=== PATIENT | female | born 2000 | race Caucasian/White ===

== ENCOUNTER → 2024-02-18 09:02 | Outpatient (BNVA) | payer MEDICAID, SELFPAY | PROVIDERS: Visit Provider Nurse Practitioner Family | DX: N92.6 Irregular menstruation, unspecified (principal) | CPT/HCPCS: 81025 ==

== ENCOUNTER 2024-09-27 23:08 | Outpatient (CLI) | payer MEDICAID, SELFPAY ==
[2024-09-27 23:33] VITALS: BMI 36.0
[2024-09-27 23:38] VITALS: BP 115/70; PULSE 87
[2024-09-27 23:53] VITALS: BP 110/70; PULSE 100
[2024-09-27 23:55] LABS: Add Urine Microscopic? YES; Bacteria Urine Trace /hpf; Bilirubin Urine Neg (Negative); Blood Urine Neg (Negative); Glucose Urine UA Norm (Normal); Ketones Urine Negative (Negative); Leukocyte Esterase Urine 2+ (Negative); Nitrate Urine Negative (Negative); Protein Urine Neg (Negative); RBC Urine 0-2 /hpf (0-2); Urine Appearance Slightly Cloudy (CLEAR); Urine Color Yellow (Yellow); Urobilinogen Urine Norm (Negative); pH Urine 7 (5-7)
[2024-09-28 00:05] LABS: Amphetamines Screen Urine Negative (Negative); Barbiturates Screen Urine Negative (Negative); Benzodiazepines Screen Urine Negative (Negative); Cocaine Screen Urine Negative (Negative); Opiate Screen Urine Negative (Negative); PCP Screen Urine Negative (Negative); THC Screen Urine Positive (Negative)
[2024-09-28 00:24] VITALS: BP 111/69; PULSE 100
[2024-09-28 00:38] VITALS: BP 119/73; PULSE 92
[2024-09-28] MEDS: ceFAZolin 2,000 mg SDV 2000 MG IVP (00:39)
[2024-09-28 01:04] VITALS: BP 119/73; PULSE 92; RESP 16; O2SAT 100
== END 2024-09-28 01:04 | disposition home or self-care (01) ==
LOC: OPOB 23:13 → OBGYN 23:14
PROVIDERS: Visit Provider Obstetrics & Gynecology
DX: O26.899 Other specified pregnancy related conditions, unspecified trimester (principal); Z3A.00 Weeks of gestation of pregnancy not specified; R10.9 Unspecified abdominal pain
CPT/HCPCS: 59025; 80306; 81001; 96374; 99211; J0690

== ENCOUNTER 2024-10-26 09:18 | Outpatient (CLI) | payer MEDICAID, SELFPAY ==
[2024-10-26 09:18] VITALS: RESP 16; BMI 36.0
== END 2024-10-26 10:20 | disposition home or self-care (01) ==
LOC: OPOB 09:19 → OBGYN 09:20
PROVIDERS: Visit Provider Obstetrics & Gynecology
DX: O26.899 Other specified pregnancy related conditions, unspecified trimester (principal); Z3A.00 Weeks of gestation of pregnancy not specified; R10.9 Unspecified abdominal pain
CPT/HCPCS: 59025; 99211

== ENCOUNTER 2024-11-01 13:00 | Outpatient (CLI) | payer MEDICAID, SELFPAY ==
[2024-11-01 13:05] VITALS: BMI 37.0
[2024-11-01 13:11] VITALS: BP 116/68; PULSE 79
[2024-11-01 13:26] VITALS: BP 123/77; PULSE 94
[2024-11-01 13:45] VITALS: BP 123/77; PULSE 94; RESP 18
== END 2024-11-01 13:45 | disposition home or self-care (01) ==
LOC: OPOB 13:03 → OBGYN 13:05
PROVIDERS: Visit Provider Obstetrics & Gynecology
DX: O26.899 Other specified pregnancy related conditions, unspecified trimester (principal); Z3A.00 Weeks of gestation of pregnancy not specified; R10.9 Unspecified abdominal pain
CPT/HCPCS: 59025; 99211

== ENCOUNTER 2024-11-12 18:45 | Outpatient (CLI) | payer MEDICAID, SELFPAY ==
[2024-11-12 18:45] VITALS: BMI 36.3
[2024-11-12 19:06] VITALS: BP 126/83; PULSE 92
[2024-11-12 19:22] VITALS: BP 111/74; PULSE 92
[2024-11-12 19:37] VITALS: BP 113/79; PULSE 101
[2024-11-12 19:52] VITALS: BP 116/74; PULSE 90
== END 2024-11-12 20:00 | disposition left against medical advice (07) ==
LOC: OPOB 18:45 → OBGYN 18:46
PROVIDERS: Visit Provider Obstetrics & Gynecology
DX: O26.899 Other specified pregnancy related conditions, unspecified trimester (principal); Z3A.00 Weeks of gestation of pregnancy not specified; R10.9 Unspecified abdominal pain
CPT/HCPCS: 59025; 99211

== ENCOUNTER 2024-12-20 01:41 | Emergency (ER) | payer MEDICAID, SELFPAY ==
[2024-12-20 01:48] VITALS: BP 107/58; PULSE 74; RESP 18; TEMP 36.6; O2SAT 100; BMI 34.3
--- OUTSIDE RECORDS SUMMARY | 2024-12-20 01:58 | XMS_ITS | Data Portability ---
Author Organization [facility] Address [address] [place] [address] Assessment No assessment recorded. Plan of Treatment Reminders Order Date Submit Date Provider Last Modified By Organization Details Last Modified Time Details Appointments None recorded. Lab urinalysis, dipstick 2023 024 [place] Main Office, [address], [place], [address], 4 08:52:14 urinalysis complete, reflex culture 2023 024 [place] [facility], [address], [address], 4 11:18:46 Referral obstetricia n and gynecologis t referral 2023 024 Eugene Vegas MD, [address] [facility], [address], [place], [address], 4 15:21:01 neurologist referral 2023 024 [email or web address] Perez Finn MD, [address], [address], 5 15:40:11 Procedures None recorded. Surgeries None recorded. Imaging None recorded. Medication Orders mupirocin 2 % topical ointment 2023 025 [place] [facility][id number], [address] [place], [place], [id number], 5 12:08:04 28 mg iron-800 mcg tablet 2023 025 [facility], [address], [place], [id number], 5 12:15:45 fluticasone propionate 50 mcg/actuati on nasal spray,suspe nsion 2023 024 [facility], [address], [place], [id number], 4 08:23:41 albuterol sulfate HFA 90 mcg/actuati on aerosol inhaler 2023 024 [address] [facility], [facility] [place], [place], [id number], 4 08:23:41 famotidine 20 mg tablet 2023 024 [address] [facility], [address], [place], [id number], 4 08:23:41 Patient TargetsNo targets recorded. Patient InstructionsNo instructions recorded. Reason for Referral [employer] Gynecologis t Referral for 14+ weeks gestation Referring Physician: Olivia Martinez [facility], Encounter Date: 05/28/2024 Neurologist Referral for Sei zure disorder Evaluation and management Referring Physician: Olivia Martinez [facility], Encounter Date: 05/28/2024 Results Created Date Observation Date Name Description Value Unit Range Abnormal Flag Note LastModifiedBy Organization Detail LastModifiedTime 06/01/20 24 06/01/2024 INDIC ATED URINE CULTU RE culture, urine SPECIM EN NUMBER : [id number] CULTU RE, URINE SPECI MEN NUMBE R: [id number] SPECI MEN COMME NT: URINE SOURC E: URINE REPOR T STATU S: FINAL FINAL REPOR T: 06/01 >100, 000 CFU/M L UROGE NITAL ENRIKE PRESE NT NO COMMO N PATHO GENS Testi ng Perfo rmed At: [facility] [address] [facility] [place] [address] Labor atory Dire tor: Robert cazares, MKiana NAYAN Huerta r [id number] [place]. [id number] Not Available [facility] - Main Lab (Blood Not Drawn At This Location) Visit [place], [address], 06/01/2024 11:18:45 06/01/20 24 05/30/2024 UA, MICRO SCOPI C, REFLE X TO CULTU RE color DARK YELLOW yellow -straw abnormal Not Available [facility] Main Lab (Blood Not Drawn At This Location) [place], [address], 06/01/2024 11:18:45 06/01/20 24 05/30/2024 UA, MICRO SCOPI C, REFLE X TO CULTU RE appearance TURBID clear abnormal Not Available [facility] Main Lab (Blood Not Drawn At This Location) [place], [address], 06/01/2024 11:18:45 06/01/20 24 05/30/2024 UA, MICRO SCOPI C, REFLE X TO CULTU RE specific gravity 1.034 1.005- 1.035 Not Available [facility] Main Lab (Blood Not Drawn At This Location) [place], [address], 06/01/2024 11:18:45 06/01/20 24 05/30/2024 UA, MICRO SCOPI C, REFLE X TO CULTU RE leukocyte esterase TRACE negati ve abnormal Not Available [facility] Main Lab (Blood Not Drawn At This Location) [place], [address], 06/01/2024 11:18:45 06/01/20 24 05/30/2024 UA, MICRO SCOPI C, REFLE X TO CULTU RE nitrite NEGATI VE negati ve Not Available [facility] Main Lab (Blood Not Drawn At This Location) [place], [address], 06/01/2024 11:18:45 06/01/20 24 05/30/2024 UA, MICRO SCOPI C, REFLE X TO CULTU RE pH 5.0 5.0-9. 0 Not Available [facility] Main Lab (Blood Not Drawn At This Location) [place], [address], 06/01/2024 11:18:45 06/01/20 24 05/30/2024 UA, MICRO SCOPI C, REFLE X TO CULTU RE protein TRACE negati ve abnormal Not Available [facility] Main Lab (Blood Not Drawn At This Location) [place], [address], 06/01/2024 11:18:45 06/01/20 24 05/30/2024 UA, MICRO SCOPI C, REFLE X TO CULTU RE glucose NEGATI VE negati ve Not Available [facility] Main Lab (Blood Not Drawn At This Location) [place], [address], 06/01/2024 11:18:45 06/01/20 24 05/30/2024 UA, MICRO SCOPI C, REFLE X TO CULTU RE ketones TRACE negati ve abnormal Not Available [facility] Main Lab (Blood Not Drawn At This Location) [place], [address], 06/01/2024 11:18:45 06/01/20 24 05/30/2024 UA, MICRO SCOPI C, REFLE X TO CULTU RE urobilinogen 0.2 mg/dL <=2.0 Not Available [facility] (Blood Not Drawn At This Location) [place], [address], 06/01/2024 11:18:45 06/01/20 24 05/30/2024 UA, MICRO SCOPI C, REFLE X TO CULTU RE bilirubin NEGATI VE negati ve Not Available [facility] Main Lab (Blood Not Drawn At This Location) [place], [address], 06/01/2024 11:18:45 06/01/20 24 05/30/2024 UA, MICRO SCOPI C, REFLE X TO CULTU RE occult blood NEGATI VE negati ve Not Available [facility] Main Lab (Blood Not Drawn At This Location) [place], [address], 06/01/2024 11:18:45 06/01/20 24 05/30/2024 UA, MICRO SCOPI C, REFLE X TO CULTU RE white blood cells 11-15 /hpf 0-5 abnormal Not Available [facility] Main Lab (Blood Not Drawn At This Location) [place], [address], 06/01/2024 11:18:45 06/01/20 24 05/30/2024 UA, MICRO SCOPI C, REFLE X TO CULTU RE red blood cells 0-2 /hpf 0-2 Not Available [facility] Main Lab (Blood Not Drawn At This Location) [place], [address], 06/01/2024 11:18:45 06/01/20 24 05/30/2024 UA, MICRO SCOPI C, REFLE X TO CULTU RE epithelial cells 21-30 /hpf 0-10 abnormal Not Available [facility] Main Lab (Blood Not Drawn At This Location) [place], [address], 06/01/2024 11:18:45 06/01/20 24 05/30/2024 UA, MICRO SCOPI C, REFLE X TO CULTU RE bacteria 3+ none seen abnormal Not Available [facility] Main Lab (Blood Not Drawn At This Location) [place], [address], 06/01/2024 11:18:45 06/01/20 24 05/30/2024 UA, MICRO SCOPI C, REFLE X TO CULTU RE crystals PRESEN T none seen abnormal CALCI UM OXALA TE CRYST ALS Not Available [facility] Main Lab (Blood Not Drawn At This Location) [place], [address], 06/01/2024 11:18:45 06/01/20 24 05/30/2024 UA, MICRO SCOPI C, REFLE X TO CULTU RE casts, hyaline TRACE none-t race Testi ng Perfo rmed At: [facility] [address] [place] [address] Labor atory Dire tor: Robert cazares M.D. CLIA Numbe r [id number] [place]. [id number] Not Available [facility] Main Lab (Blood Not Drawn At This Location) [place], [address], 06/01/2024 11:18:45 05/29/20 24 05/29/2024 urina lysis , dipst ick Leukocytes Trace Not Available Main Of fice [address], [place], [address], 05/29/2024 08:23:55 05/29/20 24 05/29/2024 urina lysis , dipst ick Nitrite negati ve Not Available Main Office [address], [place], [address], 05/29/2024 08:23:55 05/29/20 24 05/29/2024 urina lysis , dipst ick Urobilinogen 0.2 Not Available Main Office [address], [place], [address], 05/29/2024 08:23:55 05/29/20 24 05/29/2024 urina lysis , dipst ick Protein Trace Not Available Main Offic e [address], [place], [address], 05/29/2024 08:23:55 05/29/20 24 05/29/2024 urina lysis , dipst ick pH 5.0 Not Available Main Offic e [address], [place], [address], 05/29/2024 08:23:55 05/29/20 24 05/29/2024 urina lysis , dipst ick Blood Neg Not Available Main Offic e [address], [place], [address], 05/29/2024 08:23:55 05/29/20 24 05/29/2024 urina lysis , dipst ick Specific [place] 1.030 Not Available Main O ffice [address], [place], [address], 05/29/2024 08:23:55 05/29/20 24 05/29/2024 urina lysis , dipst ick Ketone Neg Not Available Main Offic e [address], [place], [address], 05/29/2024 08:23:55 05/29/20 24 05/29/2024 urina lysis , dipst ick Bilirubin Neg Not Available Main Off ice [address], [place], [address], 05/29/2024 08:23:55 05/29/20 24 05/29/2024 urina lysis , dipst ick Glucose Neg Not Available Main Offic e [address], [place], [address], 05/29/2024 08:23:55 05/29/20 24 05/29/2024 urina lysis , dipst ick Appearance cloudy Not Available Main Of fice [address], [place], [address], 05/29/2024 08:23:55 05/29/20 24 05/29/2024 urina lysis , dipst ick Color orange Not Available Main Offic e [address], [place], [address], 05/29/2024 08:23:55 Result Notes None recorded. Problems Name Problem SNOMED Code Status Onset Date Resolution Date Notes Provider Name and Address Organization Details Recorded Time Gastroesophage al reflux disease without esophagitis 426753035 Active Olivia Martinez NP [address], [place], [address], [facility] 4 12:36:45 Asthma 718153316 Active Olivia Martinez NP [address], [place], [address], [facility] 4 12:36:54 Anxiety 23543667 Active Olivia Martinez NP [address], [place], [address], [facility] 4 12:37:53 Seasonal allergic rhinitis 965421694 Active Olivia Martinez NP [address], [place], [address], [facility] 4 12:39:22 Seizure disorder 633245762 Active Olivia Martinez NP [address], [place], [address], [facility] 4 13:54:38 Headache 02161444 Active Olivia Martinez NP [address], [place], [address], [facility] 4 14:05:05 Paronychia of toe 185335312 Active 2023 Olivia Martinez NP [address], [place], [address], [facility] 4 14:48:05 Gestation period, 18 weeks 40695425 Active 2023 Olivia Martinez NP [address], [place], [address], [facility] 4 14:49:24 Acute urinary tract infection 583315756 Active 2023 Olivia Martinez NP [address], [place], [address], [facility] 4 16:03:31 Gestation period, 27 weeks 30146144 Active 2024 Olivia Martinez NP [address], [place], [address], [facility] 5 12:44:15 Problem Notes None recorded. Procedures Surgical History Date Name Laterality Status Provider Name and Address Organization Details Recorded Time 08/04/2022 Date of Last Pap Smear completed NURSE Mercedes [address], [place], [address], [facility] 05/28/2024 12:45:58 Imaging Results None recorded. Procedure Notes None recorded. Medical Equipment None Reported. Allergies Allergen ID Allergen Name Allergen Category Reaction Reaction Severity Criticality Documentation Date Start Date Code Code System Note Provider Name and Address Organization Details Recorded Time 4808 ibuprofen medicatio n chest pain Not available Not available 05/28/2024 5640 RxNorm Olivia Martinez NP [address], [place], [address], [facility] 4 12:32:30 4809 Adderall medicatio n Not available Not available Not available 05/28/2024 41606 RxNorm Olivia Martinez NP [address], [place], [address], [facility] 4 12:32:30 4810 Vyvanse medicatio n Not available Not available Not available 05/28/2024 07976 3 RxNorm Olivia Martinez NP [address], [place], [address], [place] [facility] 4 12:32:30 Medications Name Sig Start Date Stop Date Status Note LastModified by Organization Details LastModified Time valacyclovi r 1 gram tablet 08/27 completed Not Available Not Available Not Available valacyclovi r 500 mg tablet active Not Available Not Available Not Available famotidine 20 mg tablet Take 1 tablet twice a day by oral route as needed for 30 days, for Acid Reflux. 08/26 completed Not Available Not Available Not Available cephalexin 500 mg capsule 08/27 completed Not Available Not Available Not Available mupirocin 2 % topical ointment APPLY SMALL AMOUNT TOPICALLY TO THE AFFECTED AREA THREE TIMES DAILY 08/27 completed Not Available Not Available Not Available cefuroxime axetil 500 mg tablet TAKE 1 TABLET BY MOUTH TWICE DAILY 08/27 completed Not Available Not Available Not Available albuterol sulfate HFA 90 mcg/actuati on aerosol inhaler Inhale 2 puffs every 4 hours by inhalatio n route as needed, for Shortness of Breath. active Not Available Not Available No t Available fluticasone propionate 50 mcg/actuati on nasal spray,suspe nsion SHAKE LIQUID AND USE 2 SPRAYS IN EACH NOSTRIL DAILY FOR ALLERGIES active Not Available Not Available No t Available nitrofurant oin monohydrate /macrocryst als 100 mg capsule TAKE 1 CAPSULE BY MOUTH EVERY 12 HOURS FOR 5 DAYS FOR UTI 06/16 completed Not Available Not Available Not Available 28 mg iron-800 mcg tablet Take 1 tablet every day by oral route for 30 days. 08/27 completed Not Available Not Available Not Available WesTab Plus 27 mg iron-1 mg tablet TAKE 1 TABLET BY MOUTH EVERY DAY active Not Available Not Available No t Available Vitals Date Recorded Body height Heart rate Respiratory rate Body temperature Body mass index (BMI) Body weight Oxygen saturation Oxygen saturation in Arterial blood by Pulse oximetry Systolic blood pressure Diastolic blood pressure Provider Name and Address Organization Details Last Updated DateTime 5 160.02 cm 100 /min 18 /min 98 [degF] 36.5 kg/m2 83260.7 5 g 98 % 98 % 120 mm[Hg] 70 mm[Hg] NURSE [address], [place], [address], [facility] 5 12:06:43 Date Recorded Body height Heart rate Respiratory rate Body temperature Body mass index (BMI) Body weight Oxygen saturation Oxygen saturation in Arterial blood by Pulse oximetry Systolic blood pressure Diastolic blood pressure Provider Name and Address Organization Details Last Updated DateTime 4 160.02 cm 88 /min 18 /min 98 [degF] 35.4 kg/m2 45523.0 4 g 99 % 99 % 117 mm[Hg] 70 mm[Hg] NURSE Bonifacio[address], [place], [address], [facility] 4 12:42:15 Date Recorded Body height Heart rate Respiratory rate Body temperature Body mass index (BMI) Body weight Oxygen saturation Oxygen saturation in Arterial blood by Pulse oximetry Systolic blood pressure Diastolic blood pressure Provider Name and Address Organization Details Last Updated DateTime 4 160.02 cm 80 /min 18 /min 98 [degF] 35 kg/m2 91458.5 7 g 98 % 98 % 120 mm[Hg] 70 mm[Hg] NURSE Mercedes [place], [place], [address], [facility] 4 14:20:40 Social History Question Answer Notes LastModified by Organizat ion Details LastModified Time Tobacco Smoking Status Former Smoker NURSE Bonifacio[address], [place], [address], [facility] 05/28/2024 12:44:39 In The 14 Days Before Symptom Onset, Have You Had Close Contact With A Laboratory-confi rmed COVID-19 While That Case Was Ill? No [email or web address] Information not available 05/28/2024 In The 14 Days Before Symptom Onset, Have You Had Close Contact With A Person Who Is Under Investigation For COVID-19 While That Person Was Ill? No [email or web address] Information not available 05/28/2024 Have You Been To An Area Known To Be High Risk For COVID-19? Yes [email or web address] Information not available 05/28/2024 What Type Of Diet Are You Following? REGULAR [email or web address] Information not available 05/28/2024 Which Illicit Or Recreational Drugs Have You Used? [place] Patient Admits She Use To Smoke [place] Occasionaly Until She Found Out She Was Pregnat. -cmaddox 05/28/24. [email or web address] Information not available 05/28/2024 What Is The Highest Grade Or Level Of School You Have Completed Or The Highest Degree You Have Received? RL54754-8 [email or web address] Information not available 05/28/2024 Have There Been Any Changes To Your Family Or Social Situation? No [email or web address] Information not available 05/28/2024 When Did You Quit Smoking? 1-5yearssinc elastcigaret te [email or web address] Information not available 05/28/2024 Are There Any Guns Present In Your Home? No [email or web address] Information not available 05/28/2024 How Many Years Have You Used Illicit Or Recreational Drugs? 2 Information not available 05/28/2024 Are You Interested In Quitting? No [email or web address] Information not available 05/28/2024 Do You Drink Alcohol? No [email or web address] Information not available 05/28/2024 Is Alcohol Use A Concern For You Or Others? No [email or web address] Information not available 05/28/2024 Do You Use Recreational Drugs? No [email or web address] Information not available 05/28/2024 Have You Ever Used [place]? No Information not available 05/28/2024 Have You Ever Had Any Sexually Transmitted Diseases? Yes [email or web address] Information not available 05/28/2024 Date 06/24/2018 [email or web address] Information not available 05/28/2024 Which STD? Chlamydia [email or web address] Information not available 05/28/2024 Are You Interested In Being Screened For Sexually Transmitted Diseases? No Information not available 05/28/2024 Do You Exercise? No [email or web address] Informat ion not available 05/28/2024 Is Violence At Home A Concern For You? No [email or web address] Information not available 05/28/2024 Are You Currently In A Relationship? Yes Information not available 05/28/2024 Frequent Foreign Travel? No [email or web address] Information not available 05/28/2024 What Was The Date Of Your Most Recent Tobacco Screening? 08/27/2024 [email or web address] Information not available 08/27/2024 Do You Have Any Pets? No [email or web address] Information not available 05/28/2024 Do You Use Protection During Sex? No [email or web address] Information not available 05/28/2024 What Is Your Relationship Status? Single [email or web address] Information not available 05/28/2024 Do You Use Your Seat Belt Or Car Seat Routinely? Yes [email or web address] Information not available 05/28/2024 Are You Sexually Active? Yes [email or web address] Information not available 05/28/2024 Do You Have Smoke And Carbon Monoxide Detectors In Your Home? Yes [email or web address] Information not available 05/28/2024 At What Age Did You Start Smoking Tobacco? 21 [email or web address] Information not available 05/28/2024 Are You Passively Exposed To Smoke? Yes Information not available 05/28/2024 How Much Tobacco Do You Smoke? No [email or web address] Information not available 05/28/2024 How Many Years Have You Smoked Tobacco? 2 Information not available 05/28/2024 Have You Used IV Drugs? No [email or web address] Information not available 05/28/2024 Sex: Female Functional Status Question Answer Note LastModified by Organizat ion Details LastModified Time Do you use any illicit or recreational drugs? Yes [email or web address] Information not available 05/28/2024 Do you or have you ever used any other forms of tobacco or nicotine? No [email or web address] Information not available 05/28/2024 What is your level of alcohol consumption? None [email or web address] Information not available 05/28/2024 Are you currently employed? No Information not available 05/28/2024 What is your exercise level? None [email or web address] Information not available 05/28/2024 Mental Status None recorded. Family History Relationship Description Onset Age of this Age Resolved Age Notes LastModified by Organization Details LastModified Time Mother Type 1 diabetes mellitus Not available 2023 12:42:53 Paternal Grandmother Type 1 diabetes mellitus Not available 2023 12:43:07 Maternal Grandmother Type 2 diabetes mellitus [email or web address] Not available 2023 12:43:19 Medical History Condition Response Allergies/Hayfever Y Other N Gout N Atrial Fibrillation N High Blood Pressure N Anxiety Y Cholesterol Problem N Acid Reflux Y Erectile Dysfunction N Migraines Y Thyroid Problems Y Depression Y Prostate Problems N Coagulation (Bleeding) Problem N Osteopenia / Osteoporosis N Alcoholism N Diabetes N Cancer N Asthma Y Prior Surgeries and Hospitalizations N High Cholesterol N Hepatitis N Heart Disease N Chronic Low Back Pain Y Gynecological History Statement/Question Response Menses Monthly N HPV Vaccine Y Abnormal Pap N Date of Last Pap Smear 08/04/2022 Age at Menarche 13 Sexually Active? Y Obstetrics History GPAL:G 1 P 0 0 0 0 Past Encounters Encounter ID Performer Location Encounter Start Date Encounter Closed Date Diagnosis/Indication Diagnosis SNOMED-CT Code Diagnosis ICD10 Code Diagnosis Note [id number] Olivia Martinez NP Main Office [address] [place] [address] 05/28/2024 12:13:29 05/28/2024 13:04:17 Adult health examination 827480409 Z00.01 New patient presented for admission to the practice. Adult wellness completed. Educated the patient on continuing a healthy diet low in fat, high in vegetables , fruits, and fiber.Educ ated on the benefits of aerobic exercise for 30 minutes each day 3-5 times each week.Follo w up as noted below. [id number] Z33.1 Patient previously followed by OB in [place] and is needing referral for local OB- order indicated below. Prescripti on for vitamins sent to pharmacy. We reviewed nutrition, folic acid, environmen tito hazards and toxins. Patient's questions answered and verbal understand ing expressed. Asthma 386949487 J45.90 9 Complexity : chronic, stablePati ent with history of intermitte nt asthma. Prescripti on for albuterol sent to pharmacy. Encouraged nonpharmac ological interventi ons such as avoiding allergens, having MELI inhaler handy at all times. Discussed signs and symptoms of respirator y distress and need to present to the ED. Patient verbalizes understand ing regarding plan of care and all questions answered Gastroesop hageal reflux disease without esophagitis 117822875 K21.9 Complexity : acutePatie nt presents with GERD since . Discussed treatment options. prescripti on for famotidine sent to pharmacy. Explained intended effects, potential side effects, and schedule of dosages of the medication . Recommende d diet modificati ons, including reducing fatty food, caffeine, spicy food, carbonated beverage intake, to reduce episodes. Patient expressed verbal understand ing Seasonal a llergic rhinitis 918955852 J30.2 Complexity : chronic, exacerbate dPatient presents with history of allergies. Treatment plan indicated below. Prescripti on sent to pharmacy. Explained intended effects, potential side effects, and schedule of dosages of the medication . Avoid exposure to allergens. Follow-up for worsening or persistent symptoms. Patient verbalizes understand ing regarding plan of care and all questions answered. Seizure disorder 6299926 02 G40.909 Complexity : chronicPat ient reports history of seizure disorder, not followed by neurology- requests referral. Indicated below. Patient will follow up as directed. Anxiety 06973853 F41.9 Complexity : chronic, stablePati ent reports history of anxiety. Patient identified triggers for anxiety and impact of anxious thinking on functionin g. Discussed strategies to regulate symptoms. Plan to re-evaluat e at follow up. Headache 44927794 R51.9 Complexity : acuteThe patient provides a headache history most suggestive of headaches d/t fluctuatio n of hormones d/t . Further diagnostic evaluation is not required. Patient plans to continue OTC tylenol as needed. Lower urin nicho tract symptoms [id number] R39.9 Complexity : acutePatie nt presents with s/sx of UTI. Urine sent for culture. May take OTC medication s. Increase oral fluid intake. Follow up for worsening or persistent symptoms. Will review results with patient and discuss plan of care after review. Patient verbalizes understand ing regarding plan of care and all questions answered. [id number] Olivia Martinez NP Main Office [address] [address] 06/16/2024 14:10:31 06/16/2024 14:37:58 Paronychia of toe [id number] L03.039 Complexity : acutePatie nt instructed to continue Ceftin prescribed at ED for UTI d/t use in treatment of skin infections . Prescripti on for mupirocin sent to pharmacy. Explained intended effects, potential side effects, and schedule of dosages of the medication . Patient advised to soak foot several times a day in warm ater and epson salt, apply warm compresses , use of antibacter ial soap. Patient advised to RTC if no improvemen t in symptoms. Patient's questions answered and verbal understand ing expressed. Acute urin nicho tract infection [id number] N39.0 Complexity : acutePatie nt completed macrobid and denies urinary symptoms. reports at ED visit on 06/15/2024 she was told UTI still present. Patient advised to take Ceftin as prescribed , increase water intake, take tylenol for discomfort , avoid bubble baths/ sex until medication completed. Patient to RTC or go to ED for worsening of symptoms. Patient's questions answered and verbal understand ing expressed. Gestation period, 18 weeks [id number] Z3A.18 Patient has initial OB appointmen t on 07/01/2023, unsure of name of provider. Patient plans to follow up as directed. [id number] Olivia Martinez NP Main Office [address] [place] [address] 08/27/2024 11:56:04 08/27/2024 12:54:09 Seizure disorder [id number] G40.909 Complexity : chronicPat ient reports history of seizure disorder. Did not attend neurology appointmen t scheduled. Plans to discuss with new PCP upon move to [place] 09/04/24. Seasonal a llergic rhinitis [id number] J30.2 Complexity : chronic, stableStab le with Flonase. Plans to continue PRN. Avoid exposure to allergens. Follow-up for worsening or persistent symptoms. Patient verbalizes understand ing regarding plan of care and all questions answered. Gastroesop hageal reflux disease without esophagitis [id number] K21.9 Complexity : acutePatie nt discontinu ed famotidine and is taking TUMS PRN. Plans to continue. Recommende d diet modificati ons, including reducing fatty food, caffeine, spicy food, carbonated beverage intake, to reduce episodes. Patient expressed verbal understand ing Gestation period, 27 weeks [id number] Z3A.27 Patient had OB appointmen t on 08/26/24. Reports upcoming move back to [place]. Patient plans to seek OB care upon arrival. Patient plans to continue PNV as directed. Health Concerns Section Related Observation LastModified by Organization Detai ls LastModified Time None Recorded Concern Status LastModified by Organization Details LastModified Time None Recorded Advance Directives Directive None Recorded Payers Insurance Date Sequence Insurance Name Policy Number Policy De Los Santos Covered Member ID De Los Santos Member ID Guarantor Name 09/17/2024 1 [place] (MEDICAID REPLACEMENT - O) LABY Awilda Mabry [id number] Awilda Mabry Notes Date Note Type Note Provider Name and Address Organization Details Recorded Time 05/28/2024 text/html This is a 23 yea r old female who presents to the clinic to establish care. Patient is new to practice.Prior PCP: Dr. Ayse Martínez in [facility] OBGYN: Dr. Pino Jackson Patient is New to practice. Medical History and Medication Usage:*Asthma- The patient reports a h/o asthma DX when she was 11 years old. Patient is currently prescribed a rescue inhaler and only uses PRN. Patient reports exacerbations with exposure to mold or exercise. She denies any recent use.*GERD- The patient admits to acid reflux symptoms that began with . She reports use of OTC TUMS but admits symptoms are not well managed.*Seasonal Allergies- The patient admits to a history of seasonal allergies she manages with OTC benadryl. Patient admits she has to take the antihistamine for 3-4 days before symptoms are improved. Patient currently complains of nasal drainage and congestion.*Seizure Disorder- The patient reports last seizure was 1.5 weeks ago. OBGYN records indicate a + history. The patient admits that she has not been officially diagnosed by a neurologist. She denies medication for management. The patient and her partner reports during these episodes the patient becomes tense, unresponsive, muscle tension to arms and legs, increased HR and increased respiratory rate. The patient is requesting a referral to neurology.*- The patient reports she is 14+ weeks gestation. She was previously followed by OBGYN at [facility] in [place]. She had initial labs and imaging completed. Patient is requesting referral to OB in [place].*Anxiety- The patient reports a h/o anxiety X several years. Patient reports she was never treated for symptoms but did have to attend mandatory therapy for 13 years and refuses to see again. Patient feels symptoms are stable without medication. Patient reports triggers for anxiety include new people or actually being around any people. She reports clicking a pen, fidgets, or listening to music helps with anxiety.*Headaches- The patient reports frequent headaches that occur to her temples & top of her head. Patient reports this started shortly after finding out she was . Symptoms are relieved with OTC tylenol PRN. The patient denies sensitivity to light/ sound with headaches or nausea. Today's complaints:* Possible UTI- Admits to burning with urination, dark colored urine, and painful intercourse X 2 months. Patient admits she was DX with BV in March but never completed the antibiotics she was prescribed. Denies CP, SOB, Cough.Denies frequency or urgency with urinationDenies n/v/dReports constipation that is stable with OTC stool softer.Eating Habits- The patient reports eating 1-2 meals and drinking water, lemonade, and soda daily.Exercise Habits- DeniesSleep Habits- The patient admits to trouble falling asleep at night and sleeping more during the day. The patient reports she took OTC benadryl last night and slept well I spent a total of 40 minutes (excluding separately reportable procedure time) in care of this patient to review previous clinical notes/laboratory studies/diagnostic studies, obtain the patient's history, complete the examination, and discuss the plan with the patient. Olivia Martinez NP [address], [place], [address], [facility] 05/29/2024 09:01:41 06/16/2024 text/html 23 yr old female patient presents to the clinic for an acute visit.Patient is Established to practice.Patient complains of swelling to her left big toe. She complains of pain and redness to area. She denies injury. The patient reports she noticed symptoms yesterday. She reports she went to ED yesterday for toe pain but was not given any medication. Instead she was told she still had UTI and was prescribed Ceftin 500mg. She denies symptoms of UTI and reports she completed Macrobid. She also complains of mild swelling to right hand. Patient reports she has an appointment with OB July 01 ( unsure of name) and recently had ultrasound completed at [facility] (last week) and was told she was 17 weeks . Denies CP, SOBDenies pain, frequency, urgency with urinationDenies n/v/d I spent a total of 15 minutes (excluding separately reportable procedure time) in care of this patient to review previous clinical notes/laboratory studies/diagnostic studies, obtain the patient's history, complete the examination, and discuss the plan with the patient. Olivia Martinez NP [address], [place], [address], [facility] 06/16/2024 16:04:11 08/27/2024 text/html 24 yr old vianca ts to clinic for a 3 month follow up visit. Medical History/ Medication:*seizure disorder- At initial visit, patient reported history of seizure disorder not officially diagnosed by neurologist but noted on OBGYN records. Patient denied medication management and described episodes as becomes tense, unresponsive, muscle tension to arms and legs, increased HR and increased respiratory rate. Referral to Dr. Finn, neurology, was ordered. Patient reports she was unaware of visit scheduled on 08/08 and did not attend. Denies any seizure episodes since last visit 3 months ago. *seasonal allergic rhinitis- Using Flonase PRN and tolerating medication. Denies rhinorrhea, congestion, sneezing, itchy watery eyes. *GERD- Reports discontinued famotidine. Taking TUMS PRN for acid reflux symptoms. Triggers include eating late at night and laying down. *- Patient was seen by OB, Dr. Hale, 08/26/24. Reports taking PNV daily. Patient is moving back to [place] on 09/04/24 and plans to obtain care upon arrival. Denies nausea, vomiting, spotting, abdominal cramping, or complications of . Olivia Martinez, JULIAN [address], [place], [address], [facility] 08/27/2024 12:45:09 OBGyn Episode No OBEpisode recorded.
[2024-12-20] MEDS: albuterol 8 gm MDI 1 PUFF INHALATION (02:37)
[2024-12-20 03:13] VITALS: BP 101/62; PULSE 82; O2SAT 98
--- NOTE | 2024-12-20 06:25 | W.ED.SOB ---
HPI - SOB/Dyspnea General: Chief Complaint: Shortness of Breath/Dyspnea Stated Complaint: sob Time Seen by Provider: 12/20/24 02:18 History of Present Illness: HPI Narrative: Patient presents with generalized body aches and reports feeling as though a virus has taken over. Patient describes an asthma attack with a sensation of the bottom of the ribcage collapsing and symptoms progressing to the rest of the lungs. Patient does not currently take any asthma medications and has only three puffs left in their inhaler. Patient is currently living outside in a tent due to bed bug infestation in their home, with exposure to musty smells and recent heavy rain, which may have contributed to the asthma flare. Patient also reports feeling dehydrated, exhausted, and hungry, attributing this to energy spent on maintaining breathing. No mention of fever, chest pain, or other specific symptoms. Patient requests asthma treatment, including a new inhaler and breathing treatments. Related Data Home Medications ?Medication ?Instructions ?Recorded ?Confirmed 1 100 ml PO DAILY 10/26/24 10/26/24 valacyclovir 10/26/24 Previous Rx's ?Medication ?Instructions ?Recorded albuterol sulfate 90 mcg/actuation 1 inh inhalation Q6H PRN shortness 12/20/24 aerosol inhaler (Ventolin HFA) of breath or wheezing #6.7 grams Allergies Allergy/AdvReac Type Severity Reaction Status Date / Time amphetamine (From Adderall Allergy Unknown Verified 11/12/24 20:21 XR) dextroamphetamine (From Allergy Unknown Verified 11/12/24 20:21 Adderall XR) ibuprofen Allergy ADR/ALGY-Pa Verified 11/12/24 20:21 lpitations lisdexamfetamine (From Allergy Unknown Verified 11/12/24 20:21 Vyvanse) PFSH ED PFSH: Social History Smoking and tobacco/nicotine status: unknown if used tobacco/nicotine Physical Exam Const: COMMON NORMALS: no acute distress, patient oriented x3 and alert HENMT: COMMON NORMALS: normocephalic and atraumatic HEAD & SCALP: normocephalic and atraumatic Eye: COMMON NORMALS: Equal, round and reactive pupils present, EOMs intact bilaterally and no scleral icterus PUPIL: Yes Equal, round and reactive pupils present Resp: COMMON NORMALS: normal respiratory effort and No retractions Cardio: COMMON NORMALS: regular rate, regular rhythm and No murmurs present (Cardio) RATE: regular rate RHYTHM: regular rhythm GI: COMMON NORMALS: Normal to inspection, nondistended, normoactive bowel sounds present, Soft to palpation and non-tender PALPATION: Yes Soft to palpation Neuro: COMMON NORMALS: patient oriented x3 SENSORIUM/ORIENTATION: Yes alert Skin: COMMON NORMALS: no rashes or lesions noted GENERAL SKIN EXAM: no rashes or lesions noted Course Vital Signs: Vital signs: Vital Signs Temperature 98 F 12/20/24 01:48 Pulse Rate 82 12/20/24 03:13 Respiratory Rate 18 12/20/24 01:48 Blood Pressure 101/62 12/20/24 03:13 Pulse Oximetry 98 12/20/24 03:13 Oxygen Delivery Me thod Room Air 12/20/24 01:48 MDM - SOB/Dyspnea Medical Decision Making Exam is reassuring and vital signs are stable. Despite concern of shortness of breath, she has no wheezes and no increased work of breathing and oxygen saturation is 99% on room air. I do not suspect any emergent process warranting further workup or imaging. She will be discharged in stable and improved condition with a prescription for albuterol and follow-up with primary care as needed. No radiology studies performed this visit Discharge Plan Discharge Patient Disposition: Home Clinical Impression: Asthma with exacerbation Condition: Stable Prescriptions: New albuterol sulfate [Ventolin HFA] 90 mcg/actuation HFA aerosol inhaler 1 inh inhalation Q6H PRN (Reason: shortness of breath or wheezing) Qty: 6.7 8RF No Action capsule 1 100 ml PO DAILY valacyclovir Discharge Orders: Discharge ED (Routine); Ordered 12/20/24 Ordered By: Maverick Bai Discharge Diet: Advance as tolerated Discharge Activity: Increase activity as tolerated Patient Instructions: Asthma Exacerbation - Adult, Patient Portal & Vishal Instructions Print Language: Danish Coding Level of Care Code ED Mobile Ui Developer for Rene Jackson
== END 2024-12-20 03:14 | disposition home or self-care (01) ==
PROVIDERS: Emergency Provider Student in an Organized Health Care Education/Training Program
DX: J45.901 Unspecified asthma with (acute) exacerbation (principal)
CPT/HCPCS: 94640; 99283; J3535